=== PATIENT | male | born 1960 | race Caucasian/White ===

== ENCOUNTER → 2017-06-15 13:15 | Outpatient (POV) | payer OTHER, SELFPAY ==
[2017-06-15 13:37] VITALS: BP 114/65; PULSE 90; RESP 18; TEMP 36.3; O2SAT 94; BMI 43.8
--- NOTE | 2017-06-15 13:44 | HMH.PAINSOAP ---
[facility] Pain Management SOAP Note Subjective:: This patient is a pleasant 57-year-old white male who we are treating for low back pain with lumbar radiculopathy symptoms. He had a lumbar epidural steroid injection which gave him 4 days good pain relief. However his pain is now returned to baseline. Most of his pain is in the low back radiating to the anterior thigh the distribution of facet arthropathy. MRI does show severe facet arthritis at L4-L5 and L5-S1. He does have increased pain with extension. He does have tenderness over the facet joints. I will do believe that he would benefit from bilateral facet joint injections of L4-5 and L5-S1. Objective:: Alert and oriented ?3 in no acute distress. Patient does have an antalgic gait. Tenderness over the lower lumbar spine. Increased pain with extension. Motor strength of the lower extremities is 5/5. There is no gross sensory deficit. Assessment:: Degenerative disc disease of lumbar spine with lumbar spondylosis and facet arthropathy at L4-5 and L5-S1. Plan:: We will seek approval and plan on bilateral lumbar facet joint injections of L4-L5 and L5-S1.
== END ==
PROVIDERS: Family Provider Emergency Medicine; PCP Emergency Medicine; Visit Provider Anesthesiology
DX: M51.16 Intervertebral disc disorders with radiculopathy, lumbar region (principal); M47.9 Spondylosis, unspecified
CPT/HCPCS: 99212

== ENCOUNTER → 2017-06-24 09:51 | Outpatient (REF) | payer OTHER, SELFPAY ==
[2017-06-24 14:03] LABS: Amphetamine/Metha Screen,Urine Negative ng/mL (<1000); Barbiturates Screen,Urine Negative ng/mL (<200); Benzodiazepines Screen,Urine Negative ng/mL (200); Cannabinoid Screen,Urine Negative ng/mL (<50); Cocaine Screen,Urine Negative ng/g (<300); Methadone Screen,Urine Negative ng/mL (<300); Opiate Screen,Urine Positive ng/mL (<300); Phencyclidine Screen,Urine Negative ng/mL (<25)
== END ==
LOC: LAB 09:51
PROVIDERS: Visit Provider Emergency Medicine
DX: Z79.899 Other long term (current) drug therapy (principal)
CPT/HCPCS: 80305

== ENCOUNTER 2017-07-17 13:13 | Day surgery (SDC) | payer OTHER, SELFPAY ==
[2017-07-17 14:01] VITALS: BP 142/80; PULSE 100; RESP 18; TEMP 36.6; O2SAT 95; BMI 43.8
[2017-07-17 14:24] VITALS: BP 145/88; PULSE 87; RESP 18; O2SAT 95
[2017-07-17 14:25] VITALS: BP 140/88; PULSE 94; RESP 18
--- NOTE | 2017-07-17 14:27 | HMH.PMPROC ---
- Procedure Date: 07/17/17 Time: 14:27 Anesthesiologist:: Malvin Navarro MD Complications:: None Pre-procedure Diagnosis:: Degenerative disc disease of lumbar spine with lumbar spondylosis and facet arthropathy at L4-L5 and L5-S1. Post-procedure Diagnosis:: Same Indications for Procedure:: Patient is a pleasant 57-year-old white male who we are treating for low back pain with lumbar radiculopathy symptoms. He got 4 days relief with his last lumbar epidural steroid injection. Pain is back to baseline now. His MRI does show severe facet arthritis at L4-L5 and L5-S1. We will do bilateral lumbar facet joint injection/medial branch blocks of L4-L5 and L5-S1 today. Procedure Details:: Lumbar medial branch block Informed consent was obtained and the risks and benefits of the procedure was explained to the patient. The back was prepped using ChloraPrep. The skin and subcutaneous tissues were anesthetized using lidocaine. I placed 22-gauge spinal needles into the facet joint/medial branches of L4-L5 and L5-S1 bilaterally. Needle placement was confirmed with dye. After this we injected 3 mL bupivacaine 0.25% and Depo-Medrol 20 mg into each facet joint/medial branch of L5 and L5-S1 bilaterally. We used a total of 80 mg Depo-Medrol for all 2 levels bilaterally. The patient tolerated the procedure well with no complications. Plan and Disposition:: We will follow-up with him in 2 weeks. We will reevaluate his symptoms at that time.
[2017-07-17 14:33] VITALS: BP 130/75; PULSE 86; RESP 21; TEMP 36.6; O2SAT 99
== END 2017-07-17 14:35 ==
LOC: SC.PAINP 13:14
PROVIDERS: Family Provider Emergency Medicine; PCP Emergency Medicine; Visit Provider Anesthesiology
DX: M51.16 Intervertebral disc disorders with radiculopathy, lumbar region (principal); M47.896 Other spondylosis, lumbar region; M54.06 Panniculitis affecting regions of neck and back, lumbar region
CPT/HCPCS: 64493; 64494; J1030; Q9966

== ENCOUNTER → 2017-07-22 11:02 | Outpatient (REF) | payer OTHER, SELFPAY ==
[2017-07-22 14:07] LABS: Amphetamine/Metha Screen,Urine Negative ng/mL (<1000); Barbiturates Screen,Urine Negative ng/mL (<200); Benzodiazepines Screen,Urine Negative ng/mL (200); Cannabinoid Screen,Urine Negative ng/mL (<50); Cocaine Screen,Urine Negative ng/g (<300); Methadone Screen,Urine Negative ng/mL (<300); Opiate Screen,Urine Negative ng/mL (<300); Phencyclidine Screen,Urine Negative ng/mL (<25)
== END ==
LOC: LAB 11:02
PROVIDERS: Visit Provider Emergency Medicine
DX: Z79.899 Other long term (current) drug therapy (principal)
CPT/HCPCS: 80305

== ENCOUNTER → 2017-08-04 09:50 | Outpatient (POV) | payer OTHER, SELFPAY ==
[2017-08-04 09:56] VITALS: BP 126/87; PULSE 75; RESP 21; O2SAT 99; BMI 43.8
--- NOTE | 2017-08-04 11:10 | HMH.PAINSOAP ---
[facility] Pain Management SOAP Note Subjective:: Patient is a pleasant 57-year-old white male who presents today after his first round of medial branch blocks at L4-L5 L5-S1. Patient received good relief for the first 2 days. Patient stated that he was much more functional at this time. 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 Patient's pain is axial in nature and he has received good relief with lumbar epidurals however no long-term relief. Patient wants to talk today about a repeat medial branch block and potential RFA of L4-L5 L5-S1 bilaterally. Patient rates his pain a 6 out of 10 today. Patient is currently being medically managed by his primary care physician on Percocet 5 twice a day and gabapentin 603 times a day. Patient states that the medication does help his pain. ROS General: no recent weight change, no fever, no sleep disturbances Respiratory: no cough, no shortness of air, no recurring pulmonary infections Cardiovascular/Peripheral Vascular: No chest pain, No palpitations, no edema, no shortness of breath. Gastrointestinal: no incontinence, normal bowel movements reported Genitourinary: no incontinence Musculoskeletal: Back pain Psychiatric: normal mood/ affect Neurological: [denies weakness in extremities], [denies balance issues] Objective:: Physical Exam General: Alert and oriented x3, no acute distress, pleasant and cooperative, [on room air] Lungs: Resps E/U, Symmetrical chest expansion, Eyes: PERRL Musculoskeletal: Flexion and extension of lumbar spine somewhat guarded secondary to pain, deep tendon reflexes normal, strength in upper and lower extremities [5/5], slightly antalgic gait noted, positive Kemps test Neurological: speech clear, 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 I believe that this patient may be a good RFA candidate. After his next round of medial branch blocks we will reassess him for potential RFA. This note was dictated using voice recognition software and may contain errors or omissions
--- NOTE | 2017-08-04 11:14 | P.CONS_ITS ---
[facility] Pain Management SOAP Note Subjective:: Patient is a pleasant 57-year-old white male who presents today after his first round of medial branch blocks at L4-L5 L5-S1. Patient received good relief for the first 2 days. Patient stated that he was much more functional at this time. 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 Patient's pain is axial in nature and he has received good relief with lumbar epidurals however no long- term relief. Patient wants to talk today about a repeat medial branch block and potential RFA of L4-L5 L5-S1 bilaterally. Patient rates his pain a 6 out of 10 today. Patient is currently being medically managed by his primary care physician on Percocet 5 twice a day and gabapentin 603 times a day. Patient states that the medication does help his pain. ROS General: no recent weight change, no fever, no sleep disturbances Respiratory: no cough, no shortness of air, no recurring pulmonary infections Cardiovascular/Peripheral Vascular: No chest pain, No palpitations, no edema, no shortness of breath. Gastrointestinal: no incontinence, normal bowel movements reported Genitourinary: no incontinence Musculoskeletal: Back pain Psychiatric: normal mood/ affect Neurological: [denies weakness in extremities], [denies balance issues] Objective:: Physical Exam General: Alert and oriented x3, no acute distress, pleasant and cooperative, [ on room air] Lungs: Resps E/U, Symmetrical chest expansion, Eyes: PERRL Musculoskeletal: Flexion and extension of lumbar spine somewhat guarded secondary to pain, deep tendon reflexes normal, strength in upper and lower extremities [5/5], slightly antalgic gait noted, positive Kemps test Neurological: speech clear, 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 I believe that this patient may be a good RFA candidate. After his next round of medial branch blocks we will reassess him for potential RFA. This note was dictated using voice recognition software and may contain errors or omissions
== END ==
PROVIDERS: Family Provider Emergency Medicine; PCP Emergency Medicine; Visit Provider Clinical Nurse Specialist Family Health
DX: M47.816 Spondylosis without myelopathy or radiculopathy, lumbar region (principal)
CPT/HCPCS: 99212

== ENCOUNTER → 2017-08-19 10:54 | Outpatient (CLI) | payer OTHER, SELFPAY ==
[2017-08-19 14:02] LABS: Amphetamine/Metha Screen,Urine Negative ng/mL (<1000); Barbiturates Screen,Urine Negative ng/mL (<200); Benzodiazepines Screen,Urine Negative ng/mL (200); Cannabinoid Screen,Urine Negative ng/mL (<50); Cocaine Screen,Urine Negative ng/g (<300); Methadone Screen,Urine Negative ng/mL (<300); Opiate Screen,Urine Positive ng/mL (<300); Phencyclidine Screen,Urine Negative ng/mL (<25)
== END ==
PROVIDERS: Visit Provider Emergency Medicine
DX: Z79.899 Other long term (current) drug therapy (principal)
CPT/HCPCS: 80305

== ENCOUNTER 2017-08-19 14:40 | Day surgery (SDC) | payer OTHER, SELFPAY ==
[2017-08-19 15:23] VITALS: BP 127/72; PULSE 88; RESP 18; TEMP 36.7; O2SAT 95; BMI 43.4
--- NOTE | 2017-08-19 15:54 | HMH.PMPROC ---
- Procedure Date: 08/19/17 Time: 15:54 Anesthesiologist:: Malvin Navarro MD Complications:: None Pre-procedure Diagnosis:: Degenerative disc disease of lumbar spine with facet arthropathy and lumbar spondylosis Post-procedure Diagnosis:: Same Indications for Procedure:: The patient is a pleasant 57-year-old white male who we are treating for low back pain with lumbar spondylosis. Patient got 2 days good relief from previous medial branch blocks of L4-5 and L5-S1. He presents for a repeat medial branch blocks at the same levels today. Procedure Details:: Lumbar medial branch block Informed consent was obtained and the risks and benefits of the procedure was explained to the patient. The back was prepped using ChloraPrep. The skin and subcutaneous tissues were anesthetized using lidocaine. I placed 22-gauge spinal needles into the facet joint/medial branches of L4-L5 and L5-S1 bilaterally. Needle placement was confirmed with dye. After this we injected 3 mL bupivacaine 0.25% and Depo-Medrol 20 mg into each facet joint/medial branch of L5 and L5-S1 bilaterally. We used a total of 80 mg Depo-Medrol for 2 levels bilaterally. The patient tolerated the procedure well with no complications. Plan and Disposition:: We will follow-up with him in 2 weeks. We will reevaluate his symptoms at that time. If he does get good relief with these blocks he may be a candidate for radiofrequency ablation to these levels.
[2017-08-19 15:55] VITALS: BP 155/95; PULSE 95; RESP 20
[2017-08-19 15:59] VITALS: BP 155/85; PULSE 89; RESP 20
[2017-08-19 16:44] VITALS: BP 139/88; PULSE 98; RESP 18; O2SAT 94
== END 2017-08-19 16:02 | disposition home or self-care (01) ==
PROVIDERS: Family Provider Emergency Medicine; PCP Emergency Medicine; Visit Provider Anesthesiology
DX: M51.36 Other intervertebral disc degeneration, lumbar region (principal); M12.88 Other specific arthropathies, not elsewhere classified, other specified site; M47.896 Other spondylosis, lumbar region
CPT/HCPCS: 64493; 64494; J1030; Q9966

== ENCOUNTER → 2017-09-08 11:22 | Outpatient (POV) | payer OTHER, SELFPAY ==
[2017-09-08 11:34] VITALS: BP 128/84; PULSE 84; RESP 20; BMI 43.0
--- NOTE | 2017-09-08 12:22 | HMH.PAINSOAP ---
[facility] Pain Management SOAP Note Subjective:: Patient is a 57-year-old white male who presents today for follow-up after medial branch block of L4-L5 L5-S1. Patient states he got no relief from the injection. Patient states he has got no relief from any injection that we have given him. Patient is currently being managed by Percocet 5 mg 1 p.o. twice daily and gabapentin 600 mg 1 p.o. 3 times daily by his primary care physician. 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 Patient is having back pain today radiating into his right leg. Patient has tried and failed injections 10-12 years ago. Patient has tried and failed physical therapy as well. Patient rates his pain an 8 out of 10 today. ROS General: no recent weight change, no fever, no sleep disturbances Respiratory: no cough, no shortness of air, no recurring pulmonary infections Cardiovascular/Peripheral Vascular: No chest pain, No palpitations, no edema, no shortness of breath. Gastrointestinal: no incontinence, normal bowel movements reported Genitourinary: no incontinence Musculoskeletal: Back pain, right leg pain Psychiatric: normal mood/ affect Neurological: [denies weakness in extremities], [denies balance issues] Objective:: Physical Exam General: Alert and oriented x3, no acute distress, pleasant and cooperative, [on room air] Lungs: Resps E/U, Symmetrical chest expansion Eyes: PERRL Musculoskeletal: Flexion and extension of lumbar spine somewhat guarded secondary to pain, deep tendon reflexes normal, strength in upper and lower extremities [5/5], [abnormal gait noted] straight leg test on the right side 30?. 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 I provided information to a new Vectra stimulator to the patient. I believe that this may be beneficial in controlling his pain long-term and allowing him to continue working. Is tried and failed physical therapy, medications, anti-inflammatories, injections. Plan the trialing process along with the implantation process. Patient is not on any anticoagulation therapy. Patient is going to contact our office if he is interested in pursuing this option. This note was dictated using voice recognition software and may contain errors or omissions
--- NOTE | 2017-09-08 12:26 | P.CONS_ITS ---
[facility] Pain Management SOAP Note Subjective:: Patient is a 57-year-old white male who presents today for follow-up after medial branch block of L4-L5 L5-S1. Patient states he got no relief from the injection. Patient states he has got no relief from any injection that we have given him. Patient is currently being managed by Percocet 5 mg 1 p.o. twice daily and gabapentin 600 mg 1 p.o. 3 times daily by his primary care physician. 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 Patient is having back pain today radiating into his right leg. Patient has tried and failed injections 10-12 years ago. Patient has tried and failed physical therapy as well. Patient rates his pain an 8 out of 10 today. ROS General: no recent weight change, no fever, no sleep disturbances Respiratory: no cough, no shortness of air, no recurring pulmonary infections Cardiovascular/Peripheral Vascular: No chest pain, No palpitations, no edema, no shortness of breath. Gastrointestinal: no incontinence, normal bowel movements reported Genitourinary: no incontinence Musculoskeletal: Back pain, right leg pain Psychiatric: normal mood/ affect Neurological: [denies weakness in extremities], [denies balance issues] Objective:: Physical Exam General: Alert and oriented x3, no acute distress, pleasant and cooperative, [ on room air] Lungs: Resps E/U, Symmetrical chest expansion Eyes: PERRL Musculoskeletal: Flexion and extension of lumbar spine somewhat guarded secondary to pain, deep tendon reflexes normal, strength in upper and lower extremities [5/5], [abnormal gait noted] straight leg test on the right side 30? . 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 I provided information to a new Vectra stimulator to the patient. I believe that this may be beneficial in controlling his pain long-term and allowing him to continue working. Is tried and failed physical therapy, medications, anti-inflammatories, injections. Plan the trialing process along with the implantation process. Patient is not on any anticoagulation therapy. Patient is going to contact our office if he is interested in pursuing this option. This note was dictated using voice recognition software and may contain errors or omissions
== END ==
PROVIDERS: Family Provider Emergency Medicine; PCP Emergency Medicine; Visit Provider Clinical Nurse Specialist Family Health
DX: M54.16 Radiculopathy, lumbar region (principal)
CPT/HCPCS: 99212

== ENCOUNTER → 2017-09-16 10:03 | Outpatient (REF) | payer OTHER, SELFPAY ==
[2017-09-16 13:54] LABS: Amphetamine/Metha Screen,Urine Negative ng/mL (<1000); Barbiturates Screen,Urine Negative ng/mL (<200); Benzodiazepines Screen,Urine Negative ng/mL (200); Cannabinoid Screen,Urine Negative ng/mL (<50); Cocaine Screen,Urine Negative ng/g (<300); Methadone Screen,Urine Negative ng/mL (<300); Opiate Screen,Urine Positive ng/mL (<300); Phencyclidine Screen,Urine Negative ng/mL (<25)
== END ==
LOC: LAB 10:03
PROVIDERS: Visit Provider Emergency Medicine
DX: Z79.899 Other long term (current) drug therapy (principal)
CPT/HCPCS: 80305

== ENCOUNTER → 2017-10-16 11:24 | Outpatient (CLI) | payer OTHER, SELFPAY ==
[2017-10-16 19:46] LABS: Amphetamine/Metha Screen,Urine Negative ng/mL (<1000); Barbiturates Screen,Urine Negative ng/mL (<200); Benzodiazepines Screen,Urine Negative ng/mL (200); Cannabinoid Screen,Urine Negative ng/mL (<50); Cocaine Screen,Urine Negative ng/g (<300); Methadone Screen,Urine Negative ng/mL (<300); Opiate Screen,Urine Positive ng/mL (<300); Phencyclidine Screen,Urine Negative ng/mL (<25)
== END ==
PROVIDERS: Visit Provider Nurse Practitioner Family
DX: Z79.899 Other long term (current) drug therapy (principal)
CPT/HCPCS: 80305

== ENCOUNTER → 2017-11-13 09:41 | Outpatient (CLI) | payer OTHER, SELFPAY ==
[2017-11-13 14:01] LABS: Amphetamine/Metha Screen,Urine Negative ng/mL (<1000); Barbiturates Screen,Urine Negative ng/mL (<200); Benzodiazepines Screen,Urine Negative ng/mL (200); Cannabinoid Screen,Urine Negative ng/mL (<50); Cocaine Screen,Urine Negative ng/g (<300); Methadone Screen,Urine Negative ng/mL (<300); Opiate Screen,Urine Negative ng/mL (<300); Phencyclidine Screen,Urine Negative ng/mL (<25)
== END ==
PROVIDERS: Visit Provider Emergency Medicine
DX: Z79.899 Other long term (current) drug therapy (principal)
CPT/HCPCS: 80305

== ENCOUNTER → 2018-12-28 13:30 | Outpatient (CLI) | payer OTHER, SELFPAY ==
[2018-12-28 14:21] LABS: Basophils % 0.4 % (0.1-2.0); Eosinophils # 0.2 K/mm3 (0.0-0.4); Eosinophils % 3.1 % (0.1-12.0); Hematocrit 45.4 % (42.0-52.0); Hemoglobin 15.5 g/dL (14.1-18.0); Lymphocytes # 1.8 K/mm3 (0.7-4.5); Mean Corpuscular HGB Conc 34.2 g/dL (31.8-35.4); Mean Corpuscular Hemoglobin 31.7 pg (27.0-31.2); Mean Corpuscular Volume 92.6 fl (80-94); Mean Platelet Volume 8.1 fl (7.4-10.4); Monocytes # 0.5 K/mm3 (0.1-1.0); Monocytes % 8.9 % (1.7-9.3); Neutrophils % 54.5 % (37.0-80.0); Platelet Count 298 K/mm3 (142-424); Red Cell Distribution Width 13.4 % (11.5-17.5); White Blood Count 5.4 K/mm3 (4.8-10.8)
[2018-12-28 14:55] LABS: Alanine Aminotransferase 36 U/L (12-78); Albumin Level 3.7 gm/dL (3.4-5.0); Alkaline Phosphatase 75 U/L (46-116); Anion Gap 13.4 mEq/L (5-15); Aspartate Amino Transferase 20 U/L (15-37); Bilirubin,Total 0.5 mg/dL (0.2-1.0); Blood Urea Nitrogen 14 mg/dL (7-18); Calcium 8.9 mg/dL (8.5-10.1); Carbon Dioxide 29 mmol/L (21.0-32.0); Chloride 102 mmol/L (98-107); Chol/HDL Ratio 4.1 (1-3.5); Cholesterol 162 mg/dL (140-200); Creatinine,Serum 1.26 mg/dL (0.70-1.30); Estimated Glomerular Filt Rate 59 ml/min (>60); GFR (African American) 71 ML/MIN (>60); Globulin 3.8 gm/dl (1.3-3.2); Glucose 97 mg/dL (74-106); HDL Cholesterol 40 mg/dL (27-67); LDL Cholesterol 66 mg/dL (0-130); Potassium 4.4 mmoL/L (3.5-5.1); Sodium 140 mmol/L (136-145); T4 (Thyroxine) 9.9 ug/dl (4.7-13.3); Thyroid Stimulating Hormone 3.31 uIU/ml (0.358-3.740); Total Protein,Serum 7.5 gm/dL (6.4-8.2); Triglycerides 279 mg/dL (30-200); VLDL Cholesterol 56 mg/dL (0-40)
[2018-12-28 16:52] LABS: Amphetamine/Metha Screen,Urine Negative ng/mL (<1000); Barbiturates Screen,Urine Negative ng/mL (<200); Benzodiazepines Screen,Urine Negative ng/mL (<200); Cannabinoid Screen,Urine Negative ng/mL (<50); Cocaine Screen,Urine Negative ng/mL (<300); Methadone Screen,Urine Negative ng/mL (<300); Opiate Screen,Urine Negative ng/mL (<300); Phencyclidine Screen,Urine Negative ng/mL (<25)
[2018-12-29 11:14] LABS: Vitamin D 25 Hydroxy 19.1 ng/mL (30.0-100.0)
== END ==
PROVIDERS: Visit Provider Nurse Practitioner Family
DX: I10 Essential (primary) hypertension (principal); Z79.899 Other long term (current) drug therapy; E55.9 Vitamin D deficiency, unspecified
CPT/HCPCS: 80053; 80061; 80305; 82652; 84436; 84443; 85025

== ENCOUNTER → 2020-02-09 14:22 | Outpatient (CLI) | payer OTHER, SELFPAY ==
[2020-02-09 14:30] LABS: Basophils % 0.6 % (0.1-2.0); Eosinophils # 0.1 K/mm3 (0.0-0.4); Eosinophils % 2.3 % (0.1-12.0); Hemoglobin 15.1 g/dL (14.1-18.0); Lymphocytes % 32.9 % (10-50); Mean Corpuscular HGB Conc 33.6 g/dL (31.8-35.4); Mean Corpuscular Hemoglobin 31.3 pg (27.0-31.2); Mean Platelet Volume 7.8 fl (7.4-10.4); Monocytes # 0.5 K/mm3 (0.1-1.0); Neutrophils # 3.3 K/mm3 (1.8-7.8); Neutrophils % 56.1 % (37.0-80.0); Platelet Count 265 K/mm3 (142-424); Red Blood Count 4.84 M/mm3 (4.60-6.20); Red Cell Distribution Width 13.3 % (11.5-17.5); White Blood Count 5.9 K/mm3 (4.8-10.8)
[2020-02-09 15:57] LABS: Hemoglobin A1C 6.1 % (4.0-6.0)
[2020-02-09 17:44] LABS: Alanine Aminotransferase 28 U/L (12-78); Albumin Level 4.1 g/dl (3.5-5.0); Albumin/Globulin Ratio 1.2 (1.1-1.8); Alkaline Phosphatase 72 U/L (38-126); Anion Gap 10.3 mEq/L (5-15); Aspartate Amino Transferase 28 U/L (17-59); Bilirubin,Total 0.5 mg/dl (0.2-1.3); Blood Urea Nitrogen 16 mg/dl (9-20); Calcium 9.5 mg/dl (8.4-10.2); Carbon Dioxide 29 mmol/L (22.0-30.0); Chloride 104 mmol/L (98-107); Chol/HDL Ratio 3.6 (1-3.5); Cholesterol 151 mg/dl (140-200); Estimated Glomerular Filt Rate 62 ml/min (>60); GFR (African American) 75 ML/MIN (>60); Globulin 3.3 g/dL (1.3-3.2); Glucose 120 mg/dl (74-100); HDL Cholesterol 42 mg/dl (40-60); Potassium 4.3 mmoL/L (3.5-5.1); Sodium 139 mmol/L (136-145); Total Protein,Serum 7.4 g/dl (6.3-8.2); Triglycerides 191 mg/dl (30-150); VLDL Cholesterol 38 mg/dL (0-40)
[2020-02-09 17:56] LABS: Direct LDL Cholesterol 67.89 mg/dL (100-129)
[2020-02-09 18:03] LABS: 25-OH Vitamin D, Total 25.7 ng/mL (30-100)
[2020-02-09 18:05] LABS: T4 (Thyroxine) 13.1 ug/dl (5.53-11.0)
[2020-02-09 18:19] LABS: Prostate Specific Ag Screen 0.7 ng/ml (0.0-4.0); Thyroid Stimulating Hormone 3.25 uIU/mL (0.465-4.68)
== END ==
PROVIDERS: Visit Provider Nurse Practitioner Family
DX: E03.9 Hypothyroidism, unspecified (principal); E66.3 Overweight; E78.5 Hyperlipidemia, unspecified; I10 Essential (primary) hypertension; E55.9 Vitamin D deficiency, unspecified; Z12.5 Encounter for screening for malignant neoplasm of prostate
CPT/HCPCS: 80053; 80061; 82306; 83036; 84436; 84443; 85025; G0103

== ENCOUNTER → 2020-02-22 11:19 | Outpatient (CLI) | payer OTHER, SELFPAY ==
--- NOTE | 2020-02-22 11:22 | CA_ITS ---
APPROVED REPORT EXAM: Comprehensive 2D, Doppler, and color-flow Echocardiogram Wash Tub Machine Operator: Nurys Lovell CRT Ht: 5 ft 7 in Wt: 285lbs BSA: 2.35 BP: 120/72 mmHg Indications: Obesity, Peripheral Edema, Hyperlipidemia, Hypertension/HDD 2D Dimensions LVOT 2.09 cm (M/F) 1.5-2.5 M-Mode Dimensions RVDd 2.22 cm (0.9-2.6) LVDd 4.01 cm (3.5-5.7) LVDs 2.65 cm (3.5-5.7) IVSd 1.54 cm (0.6-1.1) PWd 0.64 cm (0.6-1.1) EF (Teich) 63.40% FS 33.90% EDV (Teich) 70.40 mL ESV (Teich) 25.80 mL LV Diastology E/A Ratio 0.74 Mitral Valve MV A Velocity 51.00 (40-130 cm/s) Left Ventricle Left atrium is mildly enlarged, left ventricle is normal size, mild concentric left ventricular hypertrophy, visually estimated ejection fraction 55% with no regional wall motion abnormality, endocardial surfaces are very poorly visualized, a repeat study with Definity contrast is recommended. Grade 1 diastolic dysfunction seen without tissue Doppler evidence of raise left atrial pressure. Right Ventricle Right atrium and right ventricle are normal size and contractility. Aortic Valve Aortic valve is minimally thickened and fibrosed, there is no aortic stenosis or aortic insufficiency. Mitral Valve Mitral valve leaflets are minimally thickened, there is mild mitral regurgitation. Tricuspid Valve Tricuspid valve grossly normal, there is mild tricuspid regurgitation, tricuspid regurgitation jet velocity is inadequate for calculation of the right ventricular systolic pressure. Pulmonic Valve Pulmonic valve is poorly visualized. Great Vessels Aortic root is normal size. Pericardium No significant pericardial effusion noted. Conclusion 1. Mildly enlarged left atrium, normal left ventricular size, mild concentric left ventricular hypertrophy, visually estimated ejection fraction 55% with no regional wall motion abnormality, grade 1 diastolic dysfunction seen without tissue Doppler evidence of raise left atrial pressure, endocardial surfaces are very poorly visualized, repeat study with Definity contrast is recommended. 2. Mild mitral and tricuspid regurgitation. 3. No significant pericardial effusion noted. Electronically signed by : Hasmukh Teresa, 02/23/2020 09:42:10
== END ==
PROVIDERS: PCP Nurse Practitioner Family; Visit Provider Internal Medicine Cardiovascular Disease
DX: R07.89 Other chest pain (principal); R06.02 Shortness of breath; I10 Essential (primary) hypertension; E78.5 Hyperlipidemia, unspecified; E03.9 Hypothyroidism, unspecified; G47.33 Obstructive sleep apnea (adult) (pediatric)
CPT/HCPCS: 93306

== ENCOUNTER → 2020-03-06 09:45 | Outpatient (CLI) | payer MEDICAID, SELFPAY ==
--- NOTE | 2020-03-06 09:50 | XR_ITS ---
PROCEDURE: XR KNEE RT 4V CLINICAL INDICATION: right knee pain COMPARISON: No exams were available for comparison FINDINGS: No fracture or dislocation. No lytic or blastic change. There is normal mineralization. There is slight decrease in the joint space medially consistent with mild osteoarthritic change. There is minimal spurring of the posterior patella. The there is a small calcific density projecting over the lateral joint space centrally suggesting a loose body measuring 4 mm. Other findings:None. IMPRESSION: Mild osteoarthritis with possible loose body along the lateral compartment anteriorly Dictated by: Chase Morfin MD 03/07/2020 16:50 Chase Morfin MD in [place] 03/07/2020 16:50
--- NOTE | 2020-03-06 09:50 | XR_ITS ---
PROCEDURE: XR KNEE LT 4V CLINICAL INDICATION: left knee pain COMPARISON: No exams were available for comparison FINDINGS: No fracture or dislocation. No lytic or blastic change. There is normal mineralization. There is slight decrease in the medial joint space which could be due to early osteoarthritic change. No significant spurring or osteosclerosis evident. Other findings:None. IMPRESSION: Minimal decrease in the joint space medially suggesting minimal osteoarthritic change. Dictated by: Chase Morfin MD 03/07/2020 16:54 Chase Morfin MD in [place] 03/07/2020 16:54
== END ==
PROVIDERS: PCP Emergency Medicine; Visit Provider Orthopaedic Surgery
DX: M25.562 Pain in left knee (principal); M25.561 Pain in right knee
CPT/HCPCS: 73564

== ENCOUNTER → 2022-07-11 14:05 | Outpatient (CLI) | payer OTHER, SELFPAY ==
[2022-07-11 15:23] LABS: Basophils # 0.1 K/mm3 (0-0.2); Basophils % 0.8 % (0.1-2.0); Eosinophils # 0.2 K/mm3 (0.0-0.4); Eosinophils % 2.8 % (0.1-12.0); Hematocrit 47.3 % (42.0-52.0); Hemoglobin 15.5 g/dL (14.1-18.0); Lymphocytes % 30.8 % (10-50); Mean Corpuscular HGB Conc 32.8 g/dL (31.8-35.4); Mean Corpuscular Hemoglobin 31.4 pg (27.0-31.2); Mean Corpuscular Volume 95.8 fl (80-94); Monocytes # 0.6 K/mm3 (0.1-1.0); Monocytes % 8.6 % (1.7-9.3); Neutrophils # 3.8 K/mm3 (1.8-7.8); Platelet Count 282 K/mm3 (142-424); Red Blood Count 4.94 M/mm3 (4.60-6.20); Red Cell Distribution Width 13.9 % (11.5-17.5); White Blood Count 6.6 K/mm3 (4.8-10.8)
[2022-07-11 15:31] LABS: Alanine Aminotransferase 33 U/L (12-78); Albumin Level 4.3 g/dl (3.5-5.0); Albumin/Globulin Ratio 1.3 (1.1-1.8); Alkaline Phosphatase 82 U/L (38-126); Anion Gap 10.2 mEq/L (5-15); Aspartate Amino Transferase 30 U/L (17-59); Bilirubin,Total 0.5 mg/dl (0.2-1.3); Blood Urea Nitrogen 18 mg/dl (9-20); Calcium 8.9 mg/dl (8.4-10.2); Carbon Dioxide 30 mmol/L (22.0-30.0); Chloride 105 mmol/L (98-107); Chol/HDL Ratio 4.6 (1-3.5); Cholesterol 171 mg/dl (140-200); Estimated Glomerular Filt Rate 52 ml/min (>60); GFR (African American) 62 ML/MIN (>60); Globulin 3.4 g/dL (1.3-3.2); Glucose 116 mg/dl (74-100); HDL Cholesterol 37 mg/dl (40-60); Potassium 4.2 mmoL/L (3.5-5.1); Sodium 141 mmol/L (136-145); Total Protein,Serum 7.7 g/dl (6.3-8.2); Triglycerides 279 mg/dl (30-150); VLDL Cholesterol 56 mg/dL (0-40)
[2022-07-11 15:42] LABS: Direct LDL Cholesterol 71.52 mg/dL (100-129)
[2022-07-11 16:02] LABS: Prostate Specific Ag Screen 0.8 ng/ml (0.0-4.0); Thyroid Stimulating Hormone 2.85 uIU/mL (0.465-4.68)
[2022-07-11 17:30] LABS: Hemoglobin A1C 5.8 % (4.0-6.0)
== END ==
PROVIDERS: PCP Nurse Practitioner Family; Visit Provider Nurse Practitioner Family
DX: I10 Essential (primary) hypertension (principal); R53.83 Other fatigue; E03.9 Hypothyroidism, unspecified; Z12.5 Encounter for screening for malignant neoplasm of prostate
CPT/HCPCS: 80053; 80061; 83036; 84443; 85025; G0103

== ENCOUNTER → 2022-08-14 08:18 | Outpatient (CLI) | payer OTHER, SELFPAY ==
--- NOTE | 2022-08-14 | CA_ITS ---
APPROVED REPORT Exam: Exercise Treadmill Technologist: Jessica Rivas, Ht: 5 ft 5 in Wt: 301 lbs BSA: 2.35 m2 HR: 66 bpm BP: 114/70 mmHg Rhythm: NSR, T wave abns in lead 3, aVF Medical History Medical History: HTN, Hyperlipidemia Medications: Amlodipine,,,,, Levothyroxine,,,,, Clonidine,,,,, Lovastatin,,,,, Bisprolol,,,,, Irbesartan HCTZ,,,,, Cardiac Risk Factors: HTN, Hyperlipidemia Stress Test Details Test: Bossman HR Resting HR: 74 bpm Max Heart Rate (APMHR): 159.414891 bpm Max HR Achieved: 149 bpm Target HR (85% APMHR): 135.670434 bpm % of APMHR: 93.71 Recovery HR: 127 bpm BP Resting BP: 111/70 mmHg Max BP: 179/65 mmHg Recovery BP: 179.0/65.0 mmHg ECG Resting ECG: NSR, T wave abns in lead 3, aVF Clinical Exercise duration: 06:00 min Highest Stage Achieved: Exercise capacity: 7.0 METs Stress ECG Conclusion During bossman protocol pt walked total of 6 minutes, no CP noted. Rare PAC and PVC noted. Exaggeration of baseline T wave abns otherwise normal ST response to exercise. Probably normal GXT. Myoview images reported separately. Test Summary REST . . . . . . . Sitting REST . . . . . . . Standing REST 06:40 0.0 0.0 74 . 111/ 70 . . Stage 1 01:00 10.0 1.7 92 . . . . Stage 1 02:00 10.0 1.7 104 . . . . Stage 1 03:00 10.0 1.7 108 . 178/ 76 . . Stage 2 01:00 12.0 2.5 120 . . . . Stage 2 02:00 12.0 2.5 131 . . . . Stage 2 03:00 12.0 2.5 148 . . . Stop exercise at 06:00 RECOVERY 01:00 0.0 0.0 127 . . . . RECOVERY 02:00 0.0 0.0 103 . . . . RECOVERY 03:00 0.0 0.0 93 . 179/ 65 . . RECOVERY 04:00 0.0 0.0 86 . 179/ 65 . . RECOVERY 05:00 0.0 0.0 87 . 151/ 65 . . RECOVERY 06:00 0.0 0.0 88 . 151/ 65 . . RECOVERY 06:57 0.0 0.0 90 . 129/ 67 . . Electronically signed by : Hasmukh Teresa MD 08/15/2022 10:26:14
--- NOTE | 2022-08-14 08:18 | NM_ITS ---
APPROVED REPORT Exam: Nuclear Stress Test Indication: CHEST PAIN..FATIGUE Patient Location: Outpatient Stress Tech: Jessica Rivas SC Tech:MIRI Downing RT(R)(N) Ht: 5 ft 5 in Wt: 301 lbs HR: 74 bpm BP: 111/70 mmHg BSA: 2.35 m2 TID: 1.16 BMI: 50.0 History: CHEST PAIN..FATIGUE Procedure: Patient exercised on Siva protocol 6 minutes and sec, resting heart rate 74 bpm, resting blood pressure 111/70 mmHg, with exercise maximum heart rate achived was 149 bpm which is 94 % of the maximum predicted heart rate and blood pressure was 179/65 mmHg. Test was stopped due to FATIGUE. Patient denied any complaint of chest pain. Patient has Adequate exercise capacity, achieved 7.0 METs of workload on treadmill, the blood pressure response to exercise was Adequate. THE PATIENT WAS UNABLE TO LAY ON HIS BELLY FOR PRONE IMAGES. Electrocardiogram Resting electrocardiogram shows sinus rhythm nonspecific ST-T changes, with exercise there is less than 1.[address] segment depression noted from the baseline EKG. The EKG portion of the exercise Myoview is nondiagnostic due to baseline abnormal EKG. Cardiac Stress and Resting SPECT Images: Cardiac Stress and Resting SPECT images were obtained using technetium 99m Myoview 30.1 mCi stress and 9.88 mCi at rest. Gated SPECT analysis of segmental wall motion and calculation of the ejection fraction also done. Cardiac stress and rest SPECT images show uniform myocardial activity without segmental perfusion abnormality, computer derived ejection fraction is 63% with no regional wall motion abnormality, right ventricle is normal size and contractility. Conclusion: 1. The EKG portion of the exercise Myoview was nondiagnostic due to baseline abnormal EKG, patient has adequate exercise capacity achieved 7 METS of workload on treadmill, the blood pressure response to exercise was adequate, there was no exercise-induced chest discomfort. 2. No scintigraphic evidence of reversible ischemia seen, computer derived ejection fraction is 63% with no regional wall motion abnormality, right ventricle is normal size and contractility. 3. Normal exercise Myoview study. Electronically signed by : Hasmukh Teresa MD 08/15/2022 10:28:37
--- NOTE | 2022-08-14 08:44 | CA_ITS ---
APPROVED REPORT EXAM: Comprehensive 2D, Doppler, and color-flow Echocardiogram Cardroom Attendant: Shruthi Khalil RDCS Ht: 5 ft 5 in Wt: 301lbs BSA: 2.35 BP: 121/71 mmHg Indications: CP,OBESITY,HTN,EDEMA,HLP TDS 2D Dimensions LVOT 2.25 cm (M/F) 1.5-2.5 M-Mode Dimensions RVDd 2.66 cm (0.9-2.6) LA Diam 2.86 cm (1.9-4.0) LVDd 4.67 cm (3.5-5.7) Ao Diam 3.77 cm (2.0-3.7) LVDs 3.19 cm (3.5-5.7) IVSd 1.10 cm (0.6-1.1) PWd 1.03 cm (0.6-1.1) EF (Teich) 59.70% FS 31.70% EDV (Teich) 100.80 mL ESV (Teich) 40.60 mL LV Diastology E Decel Time 140.00 (160-240 msec) E/A Ratio 0.7 MED E' 6.30 (< 7 cm/sec) E'/MED E' Ratio 7.30 (>14) LAT E' 8.90 (<10 cm/sec) E/LAT E' Ratio 5.17 (>14) Mitral Valve MV E Max Kendell. 46.00 (40-130 cm/s) MV A Velocity 62.00 (40-130 cm/s) E/A Ratio 0.74 MV Decel. Time 140.00 (160-240 ms) MV PHT 41.00 ms Left Ventricle Left atrium is mildly enlarged, left ventricle is normal size mild concentric left ventricular hypertrophy, estimated ejection fraction 55% with no regional wall motion abnormality, diastolic parameters are inconclusive. Right Ventricle Right atrium and right ventricle are mildly enlarged with normal contractility. Aortic Valve Aortic valve is minimally thickened and fibrosed there is no aortic stenosis or aortic insufficiency. Mitral Valve Mitral valve is grossly normal, there is trace mitral regurgitation. Tricuspid Valve Tricuspid valve grossly normal, there is trace tricuspid regurgitation, tricuspid regurgitation jet velocity is inadequate for calculation of the right ventricular systolic pressure. Pulmonic Valve Pulmonic valve is poorly visualized. Great Vessels Aortic root is normal size. Inferior vena cava is poorly visualized. Pericardium No significant pericardial effusion noted. Conclusion 1. Mild biatrial enlargement, normal left ventricular size, mild concentric left ventricular hypertrophy, estimated ejection fraction 55% with no regional wall motion abnormality, diastolic parameters are inconclusive. 2. Mildly enlarged right ventricle with normal contractility. 3. Trace mitral and tricuspid regurgitation. 4. No significant pericardial effusion noted 5. Inferior vena cava is poorly visualized. Electronically signed by : Hasmukh Teresa MD 08/15/2022 17:02:41
== END ==
PROVIDERS: PCP Nurse Practitioner Family; Visit Provider Nurse Practitioner Family
DX: R07.9 Chest pain, unspecified (principal); E78.5 Hyperlipidemia, unspecified; I10 Essential (primary) hypertension; G47.33 Obstructive sleep apnea (adult) (pediatric)
CPT/HCPCS: 78452; 93017; 93306; A9502

== ENCOUNTER → 2022-09-15 07:43 | Outpatient (CLI) | payer OTHER, SELFPAY ==
--- NOTE | 2022-09-15 07:59 | US_ITS ---
FINAL REPORT TECHNIQUE: Sonographic images were obtained of the retroperitoneum. CLINICAL HISTORY: R07.9 - Chest pain, unspecified FINDINGS: The right kidney measures 10.6 cm. The left kidney measures 11.2 cm. There is no evidence of renal mass or hydronephrosis. There is probable scarring in the mid left kidney. The spleen is mildly enlarged and measures 14.1 cm. IMPRESSION: Mild splenomegaly. Reviewed, Interpreted and Dictated by Duncan Waldron III, MD Transcribed by [place] Authenticated and [facility]
== END ==
PROVIDERS: PCP Emergency Medicine; Visit Provider Physician Assistant
DX: I10 Essential (primary) hypertension (principal); R07.9 Chest pain, unspecified; E78.5 Hyperlipidemia, unspecified; G47.33 Obstructive sleep apnea (adult) (pediatric)
CPT/HCPCS: 76770

== ENCOUNTER → 2022-10-09 07:44 | Outpatient (CLI) | payer OTHER, SELFPAY ==
--- NOTE | 2022-10-09 07:45 | CA_ITS ---
FINAL REPORT TECHNIQUE: Grayscale, color Doppler and duplex Doppler ultrasound of the kidneys, aorta and renal arteries was performed. Multiple velocities were measured. CLINICAL HISTORY: HTN,OBESITY COMPARISON: None FINDINGS: Aorta velocity: 86 cm/sec Right kidney: 11.6 cm. No evidence of hydronephrosis or mass. Right intrarenal RI: 0.58-0.61 Right renal artery velocity: 71 cm/sec. Right RAR (Renal artery-Aortic Ratio): 0.82 Left Kidney: 11.1 cm. No evidence of hydronephrosis or mass. Left intrarenal RI: 0.58-0.61 Left renal artery velocity: 71 cm/sec. Left RAR (Renal Artery-Aortic Ratio): 0.82 IMPRESSION: No evidence of significant renal artery stenosis. CT angiogram or postcontrast MR angiogram would be more sensitive for evaluation of possible renal artery stenosis. Reviewed, Interpreted and Dictated by Duncan Waldron III, MD Transcribed by Kristal [place] Authenticated and [facility]
== END ==
PROVIDERS: PCP Emergency Medicine; Visit Provider Physician Assistant
DX: I10 Essential (primary) hypertension (principal)
CPT/HCPCS: 93976

== ENCOUNTER → 2022-12-04 09:01 | Outpatient (CLI) | payer OTHER, SELFPAY ==
[2022-12-04 09:20] LABS: Basophils % 0.5 % (0.1-2.0); Eosinophils # 0.2 K/mm3 (0.0-0.4); Eosinophils % 3.7 % (0.1-12.0); Hematocrit 43.8 % (42.0-52.0); Lymphocytes # 1.6 K/mm3 (0.7-4.5); Lymphocytes % 30.6 % (10-50); Mean Corpuscular Hemoglobin 30.2 pg (27.0-31.2); Mean Corpuscular Volume 94.3 fl (80-94); Monocytes # 0.4 K/mm3 (0.1-1.0); Monocytes % 7.6 % (1.7-9.3); Neutrophils % 57.6 % (37.0-80.0); Platelet Count 205 K/mm3 (142-424); Red Blood Count 4.65 M/mm3 (4.60-6.20); Red Cell Distribution Width 13.6 % (11.5-17.5); White Blood Count 5.1 K/mm3 (4.8-10.8)
[2022-12-04 09:44] LABS: Alanine Aminotransferase 30 U/L (12-78); Albumin Level 3.8 g/dl (3.5-5.0); Alkaline Phosphatase 63 U/L (38-126); Anion Gap 10.3 mEq/L (5-15); Aspartate Amino Transferase 28 U/L (17-59); Bilirubin,Indirect 0.3 mg/dL (0.0-0.9); Bilirubin,Total 0.3 mg/dl (0.2-1.3); Bilirubin,Unconjugated 0.4 mg/dL (0.0-1.1); Blood Urea Nitrogen 25 mg/dl (9-20); Calcium 8.5 mg/dl (8.4-10.2); Carbon Dioxide 29 mmol/L (22.0-30.0); Chloride 106 mmol/L (98-107); Chol/HDL Ratio 4.2 (1-3.5); Cholesterol 159 mg/dl (140-200); Estimated Glomerular Filt Rate 56 ml/min (>60); GFR (African American) 68 ML/MIN (>60); Glucose 165 mg/dl (74-100); HDL Cholesterol 38 mg/dl (40-60); Magnesium 1.9 mg/dl (1.6-2.3); Potassium 4.3 mmoL/L (3.5-5.1); Sodium 141 mmol/L (136-145); Total Protein,Serum 6.7 g/dl (6.3-8.2); Triglycerides 300 mg/dl (30-150); VLDL Cholesterol 60 mg/dL (0-40)
[2022-12-04 09:55] LABS: Direct LDL Cholesterol 58.28 mg/dL (100-129)
[2022-12-04 10:01] LABS: Free T4 (Free Thyroxine) 1.22 ng/dl (0.78-2.19)
[2022-12-04 10:15] LABS: Thyroid Stimulating Hormone 2.41 uIU/mL (0.465-4.68)
== END ==
PROVIDERS: PCP Nurse Practitioner Family; Visit Provider Nurse Practitioner
DX: R07.9 Chest pain, unspecified (principal); I10 Essential (primary) hypertension; E78.5 Hyperlipidemia, unspecified; R60.0 Localized edema; R16.1 Splenomegaly, not elsewhere classified; G47.33 Obstructive sleep apnea (adult) (pediatric)
CPT/HCPCS: 36415; 80048; 80061; 80076; 83735; 84439; 84443; 85025

== ENCOUNTER → 2022-12-18 08:08 | Outpatient (CLI) | payer OTHER, SELFPAY ==
[2022-12-18 09:01] LABS: Anion Gap 10.8 mEq/L (5-15); Blood Urea Nitrogen 28 mg/dl (9-20); Calcium 8.6 mg/dl (8.4-10.2); Carbon Dioxide 30 mmol/L (22.0-30.0); Chloride 105 mmol/L (98-107); Estimated Glomerular Filt Rate 44 ml/min (>60); GFR (African American) 53 ML/MIN (>60); Glucose 114 mg/dl (74-100); Potassium 4.8 mmoL/L (3.5-5.1); Sodium 141 mmol/L (136-145)
== END ==
PROVIDERS: PCP Emergency Medicine; Visit Provider Internal Medicine
DX: R07.9 Chest pain, unspecified (principal); R60.0 Localized edema; I10 Essential (primary) hypertension; E78.5 Hyperlipidemia, unspecified; G47.33 Obstructive sleep apnea (adult) (pediatric)
CPT/HCPCS: 36415; 80048

== ENCOUNTER → 2023-01-15 15:48 | Outpatient (CLI) | payer OTHER, SELFPAY ==
[2023-01-15 16:33] LABS: Basophils % 0.6 % (0.1-2.0); Eosinophils # 0.2 K/mm3 (0.0-0.4); Hematocrit 43.8 % (42.0-52.0); Hemoglobin 14.5 g/dL (14.1-18.0); Lymphocytes # 1.8 K/mm3 (0.7-4.5); Lymphocytes % 27.3 % (10-50); Mean Corpuscular HGB Conc 33.2 g/dL (31.8-35.4); Mean Corpuscular Hemoglobin 31.1 pg (27.0-31.2); Mean Corpuscular Volume 93.9 fl (80-94); Mean Platelet Volume 8.1 fl (7.4-10.4); Monocytes # 0.6 K/mm3 (0.1-1.0); Monocytes % 8.4 % (1.7-9.3); Neutrophils % 60.8 % (37.0-80.0); Platelet Count 229 K/mm3 (142-424); Red Blood Count 4.66 M/mm3 (4.60-6.20); Red Cell Distribution Width 13.7 % (11.5-17.5); White Blood Count 6.5 K/mm3 (4.8-10.8)
[2023-01-15 17:06] LABS: Alanine Aminotransferase 30 U/L (12-78); Albumin Level 4.1 g/dl (3.5-5.0); Albumin/Globulin Ratio 1.2 (1.1-1.8); Alkaline Phosphatase 64 U/L (38-126); Anion Gap 15.3 mEq/L (5-15); Aspartate Amino Transferase 30 U/L (17-59); Bilirubin,Total 0.3 mg/dl (0.2-1.3); Blood Urea Nitrogen 27 mg/dl (9-20); Calcium 9.2 mg/dl (8.4-10.2); Carbon Dioxide 31 mmol/L (22.0-30.0); Chloride 101 mmol/L (98-107); Estimated Glomerular Filt Rate 47 ml/min (>60); GFR (African American) 57 ML/MIN (>60); Globulin 3.3 g/dL (1.3-3.2); Glucose 103 mg/dl (74-100); Potassium 4.3 mmoL/L (3.5-5.1); Sodium 143 mmol/L (136-145); Total Protein,Serum 7.4 g/dl (6.3-8.2)
[2023-01-17 15:52] LABS: Peripheral Smear Review Scanned Result
[2023-01-22 19:51] LABS: Interpretation: Negative (.)
== END ==
PROVIDERS: PCP Emergency Medicine; Visit Provider Internal Medicine Medical Oncology
DX: R07.9 Chest pain, unspecified (principal); R16.1 Splenomegaly, not elsewhere classified; E78.5 Hyperlipidemia, unspecified
CPT/HCPCS: 36415; 80053; 81206; 81270; 85025

== ENCOUNTER → 2023-01-19 09:11 | Outpatient (CLI) | payer OTHER, SELFPAY ==
[2023-01-19 10:18] LABS: Anion Gap 13.2 mEq/L (5-15); Blood Urea Nitrogen 24 mg/dl (9-20); Calcium 8.8 mg/dl (8.4-10.2); Carbon Dioxide 30 mmol/L (22.0-30.0); Chloride 101 mmol/L (98-107); Estimated Glomerular Filt Rate 47 ml/min (>60); GFR (African American) 57 ML/MIN (>60); Glucose 136 mg/dl (74-100); Potassium 4.2 mmoL/L (3.5-5.1); Sodium 140 mmol/L (136-145)
== END ==
PROVIDERS: Nurse Practitioner; PCP Emergency Medicine; Visit Provider Internal Medicine
DX: R07.9 Chest pain, unspecified (principal); R60.0 Localized edema; I10 Essential (primary) hypertension; E78.5 Hyperlipidemia, unspecified; R14.0 Abdominal distension (gaseous); R16.1 Splenomegaly, not elsewhere classified; G47.33 Obstructive sleep apnea (adult) (pediatric)
CPT/HCPCS: 36415; 80048

== ENCOUNTER → 2023-01-30 12:55 | Outpatient (CLI) | payer OTHER, SELFPAY | PROVIDERS: PCP Emergency Medicine; Visit Provider Emergency Medicine | DX: G47.33 Obstructive sleep apnea (adult) (pediatric) (principal); I10 Essential (primary) hypertension; E66.01 Morbid (severe) obesity due to excess calories; Z68.42 Body mass index [BMI] 45.0-49.9, adult | CPT/HCPCS: G0399 ==

== ENCOUNTER → 2023-02-03 07:49 | Outpatient (CLI) | payer OTHER, SELFPAY ==
--- NOTE | 2023-02-03 07:53 | CT_ITS ---
FINAL REPORT CLINICAL HISTORY: HYPERLIPEDEMIA,SPLENOMEGALY FINDINGS: CT ABDOMEN with and without: PROCEDURE: Axial images were obtained from the lung base to the iliac crest by computed tomography before and after the administration of intravenous contrast. Oral contrast was administered. This study was performed with techniques to keep radiation doses as low as reasonably achievable (ALARA). Individualized dose reduction techniques using automated exposure control or adjustment of mA and/or kV according to the patient's size were employed. ABDOMEN: The lung bases are clear. The heart is normal in size. The liver is fatty infiltrate. The spleen is normal. No adrenal masses present. The pancreas is normal. The kidneys are normal. The aorta is normal in caliber. There is no free fluid or adenopathy. IMPRESSION: Fatty infiltration of the liver. Reviewed, Interpreted and Dictated by Duncan Waldron III, MD Transcribed by [place] Authenticated and [facility]
== END ==
PROVIDERS: PCP Emergency Medicine; Visit Provider Internal Medicine Medical Oncology
DX: R16.1 Splenomegaly, not elsewhere classified (principal); R07.9 Chest pain, unspecified; E78.5 Hyperlipidemia, unspecified
CPT/HCPCS: 74170; Q9966

== ENCOUNTER 2024-03-23 11:23 | Outpatient (CLI) | payer OTHER, SELFPAY ==
[2024-03-23 18:28] LABS: Basophils # 0.1 K/mm3 (0-0.2); Basophils % 0.9 % (0.1-2.0); Eosinophils # 0.2 K/mm3 (0.0-0.4); Eosinophils % 2.3 % (0.1-12.0); Hematocrit 41.4 % (42.0-52.0); Lymphocytes # 1.7 K/mm3 (0.7-4.5); Lymphocytes % 25.3 % (10-50); Mean Corpuscular HGB Conc 33.8 g/dL (31.8-35.4); Mean Corpuscular Hemoglobin 32.4 pg (27.0-31.2); Mean Platelet Volume 8.9 fl (7.4-10.4); Monocytes # 0.5 K/mm3 (0.1-1.0); Monocytes % 7.4 % (1.7-9.3); Neutrophils # 4.3 K/mm3 (1.8-7.8); Platelet Count 244 K/mm3 (142-424); Red Blood Count 4.31 M/mm3 (4.60-6.20); Red Cell Distribution Width 13.8 % (11.5-17.5); White Blood Count 6.7 K/mm3 (4.8-10.8)
[2024-03-23 19:00] LABS: Alanine Aminotransferase 23 U/L (12-78); Albumin Level 3.8 g/dl (3.5-5.0); Albumin/Globulin Ratio 1.5 (1.1-1.8); Alkaline Phosphatase 56 U/L (38-126); Anion Gap 10.9 mEq/L (5-15); Aspartate Amino Transferase 22 U/L (17-59); Bilirubin,Total 0.5 mg/dl (0.2-1.3); Blood Urea Nitrogen 20 mg/dl (9-20); Calcium 9.3 mg/dl (8.4-10.2); Carbon Dioxide 30 mmol/L (22.0-30.0); Chloride 105 mmol/L (98-107); Cholesterol 214 mg/dl (140-200); Estimated Glomerular Filt Rate 56 ml/min (>60); GFR (African American) 67 ML/MIN (>60); Globulin 2.6 g/dL (1.3-3.2); Glucose 100 mg/dl (74-100); Potassium 4.9 mmoL/L (3.5-5.1); Sodium 141 mmol/L (136-145); Total Protein,Serum 6.4 g/dl (6.3-8.2); Triglycerides 291 mg/dl (30-150); VLDL Cholesterol 58 mg/dL (0-40)
[2024-03-23 19:28] LABS: 25-OH Vitamin D, Total 12.9 ng/mL (30-100)
[2024-03-23 19:29] LABS: Microalbumin < 6.000 mg/L (0-16.7)
[2024-03-23 19:57] LABS: Chol/HDL Ratio 5.9 (1-3.5); HDL Cholesterol 36 mg/dl (40-60)
[2024-03-23 20:14] LABS: HIV (1&2) Antibody Rapid NONREACTIVE (NONREACTIVE); Hemoglobin A1C 5.8 % (4.0-6.0)
[2024-03-23 20:23] LABS: Prostate Specific Ag Screen 0.8 ng/ml (0.0-4.0); Thyroid Stimulating Hormone 6.65 uIU/mL (0.465-4.68)
[2024-03-25 08:21] LABS: HBsAg Screen Negative (Negative); HCV Ab Non Reactive (Non Reactive); Hep A Ab, IGM Negative (Negative); Hep B Core Ab, IgM Negative (Negative)
== END 2024-03-23 23:59 | disposition home or self-care (01) ==
LOC: LAB.DROPOF 03-24 11:23
PROVIDERS: PCP Internal Medicine; Visit Provider Internal Medicine
DX: E66.01 Morbid (severe) obesity due to excess calories (principal); K76.0 Fatty (change of) liver, not elsewhere classified; R60.0 Localized edema; I10 Essential (primary) hypertension; E78.5 Hyperlipidemia, unspecified; E03.9 Hypothyroidism, unspecified; Z11.59 Encounter for screening for other viral diseases; Z13.1 Encounter for screening for diabetes mellitus; Z12.5 Encounter for screening for malignant neoplasm of prostate; Z68.42 Body mass index [BMI] 45.0-49.9, adult
CPT/HCPCS: 80050; 80053; 80061; 80074; 82043; 82306; 83036; 84443; 85025; 87389; G0103

== ENCOUNTER 2024-04-06 10:30 | Outpatient (CLI) | payer OTHER, SELFPAY ==
[2024-04-13 14:32] LABS: Thyroid Stimulating Hormone 0.28 uIU/mL (0.465-4.68)
== END 2024-04-06 23:59 | disposition home or self-care (01) ==
LOC: LAB.DROPOF 04-07 15:45
PROVIDERS: PCP Internal Medicine; Visit Provider Internal Medicine
DX: E03.9 Hypothyroidism, unspecified (principal)
CPT/HCPCS: 84443

== ENCOUNTER 2024-04-11 16:58 | Outpatient (CLI) | payer OTHER, SELFPAY ==
--- NOTE | 2024-04-11 17:07 | MR_ITS ---
PROCEDURE INFORMATION: Exam: MR Lumbar Spine Without and With Contrast Exam date and time: 04/11/2024 5:07 PM Age: 64 years old Clinical indication: Low back pain; Additional info: Radicular pain, weakness TECHNIQUE: Imaging protocol: Magnetic resonance imaging of the lumbar spine without and with contrast. Contrast material: PROHANCE; Contrast volume: 26 ml; Contrast route: IV; COMPARISON: CT ABDOMEN WO/W CON 02/03/2023 8:18 AM FINDINGS: Bones/joints: There is mild height loss at L4 and L5. There is no evidence of fracture. Otherwise the vertebral body heights are maintained. There is grade 1 anterolisthesis of L4 on L5. Otherwise alignment is maintained. There is multilevel disc desiccation. The intervertebral disc spaces are maintained. Spinal cord: Visualized cord, conus medullaris and cauda equina are unremarkable without compression. L1-L2: No significant disc bulge or herniation. No severe spinal canal stenosis. No significant neural foraminal narrowing. L2-L3: No significant disc bulge or herniation. No severe spinal canal stenosis. No significant neural foraminal narrowing. L3-L4: No significant disc bulge or herniation. No severe spinal canal stenosis. No significant neural foraminal narrowing. L4-L5: There is mild spinal canal stenosis secondary to mild diffuse disc osteophyte ridging and ligamentum flavum/facet hypertrophy. There is [id number] right and mild left neural foraminal stenosis secondary to foraminal disc osteophyte bulging and facet hypertrophy. L5-S1: There is mild diffuse disc osteophyte bulging without significant spinal canal stenosis. There is [id number] bilateral neural foraminal stenosis secondary to foraminal disc bulging and facet hypertrophy. Soft tissues: Unremarkable. IMPRESSION: 1. Mild height loss at L4 and L5 without evidence of fracture. 2. Grade 1 anterolisthesis of L4 on L5. 3. Please see above for specific findings at each level.
[2024-04-11] MEDS: GADOTERIDOL INJ 10ML SYRINGE 6 ML IV (17:46)
[2024-04-11] MEDS: SODIUM CHLORIDE 0.9% 10ML SYR (RAD ONLY) 10 ML IV (17:46)
[2024-04-11] MEDS: GADOTERIDOL INJ 20ML SYRINGE 20 ML IV (17:46)
== END 2024-04-11 23:59 | disposition home or self-care (01) ==
LOC: RAD 16:59
PROVIDERS: PCP Internal Medicine; Visit Provider Internal Medicine
DX: G89.29 Other chronic pain; M54.50 Low back pain, unspecified
CPT/HCPCS: 72158; A9576

== ENCOUNTER 2024-05-12 11:20 | Outpatient (CLI) | payer OTHER, SELFPAY | END 2024-05-12 23:59 | disposition home or self-care (01) | LOC: LAB.DROPOF 05-13 10:03 | PROVIDERS: PCP Internal Medicine; Visit Provider Internal Medicine | DX: E03.9 Hypothyroidism, unspecified (principal); R60.0 Localized edema | CPT/HCPCS: 84443; 84550 ==

== ENCOUNTER 2025-04-06 09:31 | Outpatient (CLI) | payer OTHER, SELFPAY ==
[2025-04-06 15:14] LABS: Hematocrit 41.6 % (42.0-52.0); Hemoglobin 14.0 g/dL (14.1-18.0); Immature Granulocytes % 0.7 %; Mean Corpuscular HGB Conc 33.7 g/dL (31.8-35.4); Mean Corpuscular Hemoglobin 32.6 pg (27.0-31.2); Mean Corpuscular Volume 96.7 fl (80-94); Nucleated Red Blood Cells % 0 %; Platelet Count 251 K/mm3 (142-424); Red Blood Count 4.30 M/mm3 (4.60-6.20); Red Cell Distribution Width-SD 47.7 fL; White Blood Count 7.2 K/mm3 (4.8-10.8)
[2025-04-06 15:53] LABS: Hemoglobin A1C 6.4 % (4.0-6.0)
[2025-04-06 15:55] LABS: Alanine Aminotransferase 34 U/L (12-78); Albumin Level 4.2 g/dl (3.5-5.0); Albumin/Globulin Ratio 1.4 (1.1-1.8); Alkaline Phosphatase 73 U/L (38-126); Anion Gap 13.2 mEq/L (5-15); Aspartate Amino Transferase 32 U/L (17-59); Bilirubin,Total 0.4 mg/dl (0.2-1.3); Blood Urea Nitrogen 24 mg/dl (9-20); Calcium 9.3 mg/dl (8.4-10.2); Carbon Dioxide 28 mmol/L (22.0-30.0); Chloride 101 mmol/L (98-107); Cholesterol 183 mg/dl (140-200); Creatinine,Serum 1.60 mg/dl (0.66-1.25); Estimated Glomerular Filt Rate 44 ml/min (>60); GFR (African American) 53 ML/MIN (>60); Globulin 3.1 g/dL (1.3-3.2); Glucose 94 mg/dl (74-100); HDL Cholesterol 37 mg/dl (40-60); Potassium 5.2 mmoL/L (3.5-5.1); Sodium 137 mmol/L (136-145); Total Protein,Serum 7.3 g/dl (6.3-8.2); Triglycerides 237 mg/dl (30-150)
[2025-04-06 16:27] LABS: Thyroid Stimulating Hormone 1.57 uIU/mL (0.465-4.68)
[2025-04-06 16:45] LABS: Hepatitis C Ab Qual. W/ RFX NEGATIVE (Negative)
[2025-04-06 17:51] LABS: Free T4 (Free Thyroxine) 1.25 ng/dl (0.78-2.19)
[2025-04-08 08:17] LABS: Hepatitis B Surface Antigen Negative (Negative)
== END 2025-04-06 23:59 ==
LOC: LAB.DROPOF 04-10 09:32
PROVIDERS: PCP Student in an Organized Health Care Education/Training Program; Visit Provider Student in an Organized Health Care Education/Training Program
DX: M10.9 Gout, unspecified (principal); Z68.42 Body mass index [BMI] 45.0-49.9, adult; M54.50 Low back pain, unspecified; E78.5 Hyperlipidemia, unspecified; E03.9 Hypothyroidism, unspecified
CPT/HCPCS: 80053; 80061; 83036; 84439; 84443; 85025; 86803; 87389; 87522